=== PATIENT | female | born 1990 | race Caucasian/White ===

== ENCOUNTER 2017-11-20 11:32 | Emergency (ER) | payer BC, OTHER ==
[2017-11-20 12:46] VITALS: BP 130/85; PULSE 96; RESP 16; TEMP 99; O2SAT 99
[2017-11-20] MEDS ORDERED: Albuterol-Ipratrop 3 mg / 0.5 (3 ml) UD INH STA (14:29)
[2017-11-20] MEDS ORDERED: Albuterol-Ipratrop 3 mg / 0.5 (3 ml) UD ONE (14:39)
--- NOTE | 2017-11-20 14:55 | ED PDOC ---
HPI: CCC, URI, Sore Throat Time Seen by Provider: 11/20/17 14:35 Chief Complaint (Nursing): ENT Problem Chief Complaint (Provider): Flu-like symptoms History Per: Patient History/Exam Limitations: no limitations Onset/Duration Of Symptoms: Days (2) Additional Complaint(s): Patient is s 27 y/o female with no past medical history presenting to the emergency department for flu exposure with associated symptoms of a moderate sore throat, cough, and a fever two days ago. Reports known sick contact (her ). Spoke with her PMD who advised her to go the ED to evaluate her shortness of breath and other symptoms. Denies vomiting or other complaints. Past Medical History Reviewed: Historical Data Vital Signs: Last Vital Signs Temp 99.0 F 11/20/17 12:44 Pulse 96 H 11/20/17 12:44 Resp 16 11/20/17 12:44 BP 130/85 11/20/17 12:44 Pulse Ox 99 11/20/17 14:58 - Family History Family History: States: No Known Family Hx - Home Medications Home Medications: Ambulatory Orders Medication Instructions Recorded Ibuprofen [Motrin] 600 mg PO Q8 #30 tab 05/06/15 Acetaminophen [Acetaminophen Extra 2 tab PO Q6 PRN #24 tablet 11/20/17 Strength] Albuterol HFA [Ventolin HFA 90 2 puff IH [id number] PRN #1 inhaler 11/20/17 mcg/actuation (8 g)] Oseltamivir Phosphate [Tamiflu] 75 mg PO BID #9 capsule 11/20/17 - Allergies Allergies/Adverse Reactions: Allergies Allergy/AdvReac Type Severity Reaction Status Date / Time iodine Allergy SWELLING Verified 11/20/17 12:44 Review of Systems ROS Statement: Except As Marked, All Systems Reviewed And Found Negative Constitutional: Positive for: Fever ENT: Positive for: Throat Pain Respiratory: Positive for: Cough Gastrointestinal: Negative for: Vomiting Physical Exam - Reviewed Nursing Documentation Reviewed: Yes Vital Signs Reviewed: Yes - Physical Exam Appears: Positive for: Well, Non-toxic, No Acute Distress Head Exam: Positive for: ATRAUMATIC, NORMAL INSPECTION, NORMOCEPHALIC Skin: Positive for: Normal Color, Warm, Dry Eye Exam: Positive for: Normal appearance ENT: Positive for: Normal ENT Inspection Neck: Positive for: Normal, Painless ROM, Supple Cardiovascular/Chest: Positive for: Regular Rate, Rhythm Respiratory: Positive for: Accessory Muscle Use, Rhonchi (bilaterally). Negative for: Normal Breath Sounds, Respiratory Distress Extremity: Positive for: Normal ROM. Negative for: Pedal Edema Neurologic/Psych: Positive for: Alert, Oriented (x3) - ECG O2 Sat by Pulse Oximetry: 99 (RA) Pulse Ox Interpretation: Normal - Progress ED Course And Treament: rapid strep: neg Patient refused toradol IM Medical Decision Making Medical Decision Making: Time: 14:29 Initial impression: Flu-like symptoms Initial plan: Albuterol/Ipratropium 3 mL INH Oseltamivir 75 mg PO Peak flow assessment pre and post treatment Rapid strep group ~ Scribe Attestation: Documented by Skyla Pereyra, acting as a scribe for PERNELL Garcia. Provider Scribe Attestation: All medical record entries made by the Scribe were at my direction and personally dictated by me. I have reviewed the chart and agree that the record accurately reflects my personal performance of the history, physical exam, medical decision making, and the department course for this patient. I have also personally directed, reviewed, and agree with the discharge instructions and disposition. Disposition - Clinical Impression Clinical Impression: Influenza - Patient ED Disposition Is Patient to be Admitted: No - Disposition Disposition: Routine/Home Disposition Time: 15:52 Condition: FAIR Prescriptions: Albuterol HFA [Ventolin HFA 90 mcg/actuation (8 g)] 2 puff IH [id number] PRN #1 inhaler PRN Reason: Cough Acetaminophen [Acetaminophen Extra Strength] 2 tab PO Q6 PRN #24 tablet PRN Reason: Pain, Moderate (4-7) Oseltamivir Phosphate [Tamiflu] 75 mg PO BID #9 capsule Instructions: Influenza (ED) Forms: Patterns (Thai), [facility] ED School/Work Excuse
== END 2017-11-20 17:36 | disposition home or self-care (01) ==
LOC: H.ER 11:32
DX: J11.1 Influenza due to unidentified influenza virus with other respiratory manifestations (principal)